=== PATIENT | female | born 1935 | race Caucasian/White ===

== ENCOUNTER 2024-03-15 18:31 | Inpatient (IN) | payer OTHER, MEDICARE ==
[~2024-03-15] VITALS: Ht 157.5 cm; Wt 59.0 kg
[2024-03-15 19:25] LABS: BASOPHILS % (AUTO) 0.1 % (0-1); EOSINOPHILS % (AUTO) 0 % (0-6); HEMATOCRIT 34.4 % (35.0-45.0); HEMOGLOBIN 11.5 g/dl (12.0-16.0); LYMPHOCYTES # (AUTO) 0.2 X10'3 (1.1-4.8); LYMPHOCYTES % (AUTO) 2.1 % (21-51); MEAN CORPUSCULAR HEMOGLOBIN 30.3 PG (27.0-31.0); MEAN CORPUSCULAR HGB CONC 33.6 g/dL (33.0-36.5); MEAN CORPUSCULAR VOLUME 90.4 FL (78-98); MEAN PLATELET VOLUME 8.4 FL (7.4-10.4); MONOCYTES # (AUTO) 0.2 X10'3 (0-0.9); MONOCYTES % (AUTO) 2.1 % (2-12); NEUTROPHILS # (AUTO) 9.9 X10'3 (1.8-7.7); NEUTROPHILS % (AUTO) 95.7 % (42-75); PLATELET COUNT 193 X10'3 (140-440); RED CELL DISTRIBUTION WIDTH 13.2 % (11.5-14.5); WHITE BLOOD COUNT 10.3 X10'3 (4.5-11.0)
[2024-03-15 19:47] LABS: ALBUMIN 2.6 G/DL (3.4-5.0); ANION GAP 9 (8-16); BLOOD UREA NITROGEN 15 MG/DL (7-18); BUN/CREATININE RATIO 22.4 (10.0-20.0); CALCIUM 8.6 MG/DL (8.5-10.1); CHLORIDE 94 MMOL/L (99-107); CREATININE 0.67 MG/DL (0.40-0.90); GLUCOSE 293 MG/DL (70-104); POTASSIUM 3.4 MMOL/L (3.5-5.1); PRO BRAIN NATRIURETIC PEPTIDE 5207 PG/ML (0-450); SODIUM 131 MMOL/L (135-145); TOTAL CARBON DIOXIDE 27.7 MMOL/L (24-32); eCRCL 47 ML/MIN; eGFR 83 ML/MIN
[2024-03-15] MEDS ORDERED: ondansetron/PF 4mg/2ml inj IV PRN (20:20)
[2024-03-15] MEDS ORDERED: magnesium Cl slow-release 64mg tablet PO PRN (20:20)
[2024-03-15] MEDS ORDERED: magnesium 4gm in 100ml NS 100 ML IV PRN (20:20)
[2024-03-15] MEDS ORDERED: potassium Cl 20 mEq SR tablet PO PRN (20:20)
[2024-03-15] MEDS ORDERED: mag hydrox/Alum hydrox/simeth 30ml oral suspension PO PRN (20:20)
[2024-03-15] MEDS ORDERED: potassium Cl 40MEQ/1/2NS 520ml 520 ML IV PRN (20:20)
[2024-03-15] MEDS ORDERED: magnesium 2GM in 50ml NS 50 ML IV PRN (20:20)
[2024-03-15] MEDS: predniSONE 20 mg tablet PO SCH (21:17)
[2024-03-15] MEDS: normal saline 1000ml 1,000 ML IV SCH (21:17)
[2024-03-15 21:32] LABS: HEMOGLOBIN A1C 7.1 % (4.5-6.2)
[2024-03-15 21:39] LABS: CHOLESTEROL 126 MG/DL (0-200); HDL CHOLESTEROL 64 MG/DL (35-60); LDL CHOLESTEROL 42 MG/DL (50-100); TRIGLYCERIDES 81 MG/DL (20-135)
[2024-03-16] VITALS (18 sets, daily range): BP systolic 101–114; BP diastolic 45–73; PULSE 80–107; RESP 14–20; TEMP 97.7–98.4; O2SAT 94–100
[2024-03-16] MEDS: ipratropium/albuterol 3ml nebule NEB SCH (00:25)
[2024-03-16 00:47] LABS: BILIRUBIN,URINE NEGATIVE (Neg); CLARITY,URINE CLEAR (Clear); COLOR,URINE YELLOW (Yellow); GLUCOSE, URINE 500 mg/dl (Neg); KETONES,URINE >=80 mg/dl (Neg); LEUKOCYTE ESTERASE ,URINE NEGATIVE (Neg); NITRITES, URINE NEGATIVE (Neg); OCCULT BLOOD,URINE NEGATIVE (Neg); PROTEIN,URINE 30 mg/dl (Neg)
[2024-03-16 00:49] LABS: UA COLLECTION TYPE NON-SPECIFIED
[2024-03-16 01:15] LABS: BACTERIA,URINE FEW /HPF (Neg); MUCUS STRANDS FEW /LPF (Neg); RBC,URINE 0-2 /HPF (0-2); RENAL CELLS, URINE FEW /HPF; TRANSITIONAL EPI CELLS,URINE FEW /HPF; WBC,URINE 0-4 /HPF (0-4)
[2024-03-16 01:16] LABS: CAL OXALATE CRYSTALS 1+ /HPF (NEGATIVE); COARSE GRANULAR CAST 0-3 /LPF (NEGATIVE); SQUAMOUS EPITHELIAL CELL,UR MODERATE /LPF (FEW)
[2024-03-16] MEDS: K and/or MAG REPLACEMENT MC SCH (08:00)
[2024-03-16 08:01] LABS: BASOPHILS % (AUTO) 0.1 % (0-1); EOSINOPHILS % (AUTO) 0 % (0-6); HEMATOCRIT 35.9 % (35.0-45.0); HEMOGLOBIN 11.9 g/dl (12.0-16.0); LYMPHOCYTES # (AUTO) 0.6 X10'3 (1.1-4.8); LYMPHOCYTES % (AUTO) 5.6 % (21-51); MEAN CORPUSCULAR HEMOGLOBIN 30.1 PG (27.0-31.0); MEAN CORPUSCULAR HGB CONC 33.2 g/dL (33.0-36.5); MEAN CORPUSCULAR VOLUME 90.9 FL (78-98); MEAN PLATELET VOLUME 8.2 FL (7.4-10.4); MONOCYTES # (AUTO) 0.4 X10'3 (0-0.9); NEUTROPHILS # (AUTO) 9.3 X10'3 (1.8-7.7); NEUTROPHILS % (AUTO) 90.3 % (42-75); PLATELET COUNT 188 X10'3 (140-440); RED BLOOD COUNT 3.95 X10'6 (4.20-5.60); RED CELL DISTRIBUTION WIDTH 13.2 % (11.5-14.5); WHITE BLOOD COUNT 10.3 X10'3 (4.5-11.0)
[2024-03-16 08:22] LABS: GLUCOSE 238 MG/DL (70-104); SODIUM 136 MMOL/L (135-145)
[2024-03-16 08:23] LABS: ALANINE AMINOTRANSFERASE 31 U/L (12-78); ALBUMIN 2.4 G/DL (3.4-5.0); ALBUMIN/GLOBULIN RATIO 0.6 (1.1-1.5); ALKALINE PHOSPHATASE 119 IU/L (46-116); ANION GAP 10 (8-16); ASPARTATE AMINO TRANSFERASE 20 U/L (10-37); BILIRUBIN,TOTAL 0.3 MG/DL (0.1-1.0); BLOOD UREA NITROGEN 14 MG/DL (7-18); BUN/CREATININE RATIO 35.9 (10.0-20.0); CALCIUM 8.6 MG/DL (8.5-10.1); CHLORIDE 100 MMOL/L (99-107); CREATININE 0.39 MG/DL (0.40-0.90); MAGNESIUM 2.2 MG/DL (1.5-2.4); POTASSIUM 3.4 MMOL/L (3.5-5.1); TOTAL CARBON DIOXIDE 25.7 MMOL/L (24-32); TOTAL PROTEIN 6.5 G/DL (6.4-8.2); eCRCL 80 ML/MIN; eGFR > 90 ML/MIN
[2024-03-16] MEDS: CefTRIAXone 2gm/D5W 50ml BAG 50 ML IV SCH (08:31)
[2024-03-16] MEDS: guaiFENesin ER 600mg tablet PO SCH (08:31)
[2024-03-16] MEDS: docusate sod 100mg capsule PO SCH (08:31)
[2024-03-16] MEDS: potassium Cl 20 mEq SR tablet PO PRN (09:28)
[2024-03-16] MEDS: azithromycin/NS 500mg/250ml 250 ML IV SCH (09:29)
[2024-03-16] MEDS ORDERED: dextrose 50%-water 50ml dispensing syringe IV PRN ×2 (12:55)
[2024-03-16] MEDS ORDERED: glucagon, human recombinant 1mg kit SUBCUT PRN (12:55)
[2024-03-16] MEDS ORDERED: DEXTROSE 15 GM of carb/4 tabs (each vial/BOTTLE has 4 tablets) PO PRN ×2 (12:55)
[2024-03-16] MEDS: insulin glargine (Lantus) pen - multi-dose SQ SCH (13:18)
[2024-03-16 13:44] LABS: D-DIMER 0.97 MG/L FEU (0-0.50)
[2024-03-16] MEDS ORDERED: CETI10TA14 PO (13:44)
[2024-03-16] MEDS ORDERED: HYDR25TA5 PO (13:44)
[2024-03-16] MEDS ORDERED: TIOT18CA3 INH (13:44)
[2024-03-16] MEDS ORDERED: IBUP-2697 PO (13:44)
[2024-03-16] MEDS ORDERED: ACET1TAB25 PO (13:44)
[2024-03-16] MEDS ORDERED: METF-1203 PO (13:44)
[2024-03-16] MEDS ORDERED: ISOS60TA71 PO (13:44)
[2024-03-16] MEDS ORDERED: LIDO700A32 TOP (13:44)
[2024-03-16] MEDS ORDERED: FLUT1BLS13 INH (13:44)
[2024-03-16] MEDS ORDERED: CHOL100046 PO (13:44)
[2024-03-16] MEDS ORDERED: PRAV40TA3 PO (13:44)
[2024-03-16] MEDS ORDERED: ASPI-1265 PO (13:44)
[2024-03-16] MEDS ORDERED: GABA-530 PO ×2 (13:44)
[2024-03-16] MEDS ORDERED: LISI2.5T14 PO (13:44)
[2024-03-16] MEDS ORDERED: LOP12.5T PO (13:44)
[2024-03-16] MEDS ORDERED: SELE200C PO (13:44)
[2024-03-16] MEDS ORDERED: ALBU90AE INH (13:44)
[2024-03-16] MEDS ORDERED: FAMO20TA8 PO (13:44)
[2024-03-16] MEDS ORDERED: VIT1TABL50 PO (13:44)
[2024-03-16] MEDS: INSULIN LISPRO 100 UNIT/ML INSULN.PEN MULTI-DOSE SQ SCH (13:58)
[2024-03-16] MEDS ORDERED: iohexol 350MG/ML 100ml bottle IV ONE (17:41)
[2024-03-16] MEDS: heparin, porcine 5000 units/ml vial SQ SCH (19:52)
[2024-03-16] MEDS: pravastatin 40mg tablet PO SCH (20:54)
[2024-03-16] MEDS: acetaminophen 325mg tablet PO PRN (21:03)
[2024-03-17] VITALS (18 sets, daily range): BP systolic 95–130; BP diastolic 47–78; PULSE 70–108; RESP 14–22; TEMP 97–98.7; O2SAT 91–96
[2024-03-17 06:58] LABS: BASOPHILS % (AUTO) 0.1 % (0-1); EOSINOPHILS % (AUTO) 0 % (0-6); HEMATOCRIT 33.6 % (35.0-45.0); HEMOGLOBIN 11.2 g/dl (12.0-16.0); LYMPHOCYTES # (AUTO) 1.6 X10'3 (1.1-4.8); LYMPHOCYTES % (AUTO) 8.5 % (21-51); MEAN CORPUSCULAR HGB CONC 33.4 g/dL (33.0-36.5); MEAN CORPUSCULAR VOLUME 89.9 FL (78-98); MEAN PLATELET VOLUME 8.5 FL (7.4-10.4); MONOCYTES # (AUTO) 1.8 X10'3 (0-0.9); NEUTROPHILS % (AUTO) 81.4 % (42-75); PLATELET COUNT 252 X10'3 (140-440); RED BLOOD COUNT 3.74 X10'6 (4.20-5.60); RED CELL DISTRIBUTION WIDTH 13.4 % (11.5-14.5); WHITE BLOOD COUNT 18.3 X10'3 (4.5-11.0)
[2024-03-17 07:15] LABS: ANION GAP 3 (8-16); BILIRUBIN,TOTAL 0.3 MG/DL (0.1-1.0); BLOOD UREA NITROGEN 16 MG/DL (7-18); BUN/CREATININE RATIO 30.8 (10.0-20.0); CALCIUM 8.9 MG/DL (8.5-10.1); CHLORIDE 102 MMOL/L (99-107); CREATININE 0.52 MG/DL (0.40-0.90); GLUCOSE 202 MG/DL (70-104); SODIUM 137 MMOL/L (135-145); TOTAL CARBON DIOXIDE 31.9 MMOL/L (24-32); eCRCL 59 ML/MIN; eGFR > 90 ML/MIN
[2024-03-17 07:16] LABS: ALANINE AMINOTRANSFERASE 53 U/L (12-78); ALBUMIN 2.4 G/DL (3.4-5.0); ALBUMIN/GLOBULIN RATIO 0.7 (1.1-1.5); ALKALINE PHOSPHATASE 111 IU/L (46-116); ASPARTATE AMINO TRANSFERASE 34 U/L (10-37)
[2024-03-17] MEDS: lisinopril 2.5mg tablet PO SCH (08:00)
[2024-03-17] MEDS ORDERED: famotidine 20mg tablet PO PRN (09:00)
[2024-03-17] MEDS: gabapentin 300mg capsule PO SCH (09:24)
[2024-03-17] MEDS: isosorbide dinitrate 30mg tablet PO SCH (09:24)
[2024-03-17] MEDS: folic acid/vitamin B complex w/vitamin C 0.8mg tablet PO SCH (09:25)
[2024-03-17] MEDS: aspirin 81mg tab.chew PO SCH (09:26)
[2024-03-17] MEDS: acetaminophen w/codeine (30MG) #3 tablet PO PRN ×2 (09:45→12:27)
[2024-03-17] MEDS: albuterol 2.5 MG/3 ML nebule NEB PRN (10:22)
[2024-03-17] MEDS ORDERED: acetaminophen w/codeine (30MG) #3 tablet PO PRN (12:30)
[2024-03-17] MEDS ORDERED: morphine 2 MG/ML inj. syringe IV PRN (15:20)
[2024-03-17] MEDS: methylPREDNISolone sod succ 125mg/2ml vial IV ONE (15:53)
[2024-03-17] MEDS: HYDROcodone/acetaminophen 5mg/325mg tablet PO PRN (15:53)
[2024-03-17] MEDS: methylPREDNISolone sod succ 125mg/2ml vial IV SCH (19:11)
[2024-03-17] MEDS: gabapentin 100mg capsule PO SCH (20:40)
[2024-03-18] VITALS (16 sets, daily range): BP systolic 108–121; BP diastolic 43–61; PULSE 81–110; RESP 16–25; TEMP 97–98.7; O2SAT 93–100
[2024-03-18 05:56] LABS: BASOPHILS % (AUTO) 0.1 % (0-1); EOSINOPHILS % (AUTO) 0 % (0-6); HEMATOCRIT 33.8 % (35.0-45.0); HEMOGLOBIN 11.2 g/dl (12.0-16.0); LYMPHOCYTES # (AUTO) 0.7 X10'3 (1.1-4.8); LYMPHOCYTES % (AUTO) 4.5 % (21-51); MEAN CORPUSCULAR HEMOGLOBIN 29.8 PG (27.0-31.0); MEAN CORPUSCULAR HGB CONC 33.1 g/dL (33.0-36.5); MEAN CORPUSCULAR VOLUME 90.1 FL (78-98); MONOCYTES # (AUTO) 0.7 X10'3 (0-0.9); MONOCYTES % (AUTO) 4.4 % (2-12); NEUTROPHILS # (AUTO) 14.2 X10'3 (1.8-7.7); PLATELET COUNT 273 X10'3 (140-440); RED BLOOD COUNT 3.75 X10'6 (4.20-5.60); RED CELL DISTRIBUTION WIDTH 13.5 % (11.5-14.5); WHITE BLOOD COUNT 15.7 X10'3 (4.5-11.0)
[2024-03-18 06:09] LABS: ALBUMIN 2.4 G/DL (3.4-5.0); ALBUMIN/GLOBULIN RATIO 0.6 (1.1-1.5); ANION GAP 4 (8-16); BILIRUBIN,TOTAL 0.2 MG/DL (0.1-1.0); BLOOD UREA NITROGEN 15 MG/DL (7-18); BUN/CREATININE RATIO 26.3 (10.0-20.0); CALCIUM 9.5 MG/DL (8.5-10.1); CHLORIDE 98 MMOL/L (99-107); CREATININE 0.57 MG/DL (0.40-0.90); GLUCOSE 278 MG/DL (70-104); MAGNESIUM 1.9 MG/DL (1.5-2.4); POTASSIUM 4.7 MMOL/L (3.5-5.1); SODIUM 132 MMOL/L (135-145); TOTAL CARBON DIOXIDE 29.6 MMOL/L (24-32); TOTAL PROTEIN 6.2 G/DL (6.4-8.2); eCRCL 54 ML/MIN; eGFR > 90 ML/MIN
[2024-03-18 06:10] LABS: ALANINE AMINOTRANSFERASE 44 U/L (12-78); ALKALINE PHOSPHATASE 104 IU/L (46-116); ASPARTATE AMINO TRANSFERASE 21 U/L (10-37)
[2024-03-18] MEDS: HYDROchlorothiazide 12.5mg capsule PO SCH (07:50)
[2024-03-18] MEDS: magnesium hydroxide 30ml (MOM) UD suspension PO PRN (17:23)
[2024-03-18] MEDS: guaiFENesin ER 600mg tablet PO SCH (19:39)
[2024-03-19] VITALS (11 sets, daily range): BP systolic 113–120; BP diastolic 48–65; PULSE 86–111; RESP 16–20; TEMP 97.2–98.4; O2SAT 95–99
[2024-03-19 06:11] LABS: BASOPHILS % (AUTO) 0.1 % (0-1); EOSINOPHILS % (AUTO) 0 % (0-6); HEMATOCRIT 33.2 % (35.0-45.0); HEMOGLOBIN 11.1 g/dl (12.0-16.0); LYMPHOCYTES # (AUTO) 1.5 X10'3 (1.1-4.8); LYMPHOCYTES % (AUTO) 7.6 % (21-51); MEAN CORPUSCULAR HEMOGLOBIN 29.9 PG (27.0-31.0); MEAN CORPUSCULAR HGB CONC 33.4 g/dL (33.0-36.5); MEAN CORPUSCULAR VOLUME 89.5 FL (78-98); MEAN PLATELET VOLUME 7.9 FL (7.4-10.4); MONOCYTES # (AUTO) 1.1 X10'3 (0-0.9); MONOCYTES % (AUTO) 5.5 % (2-12); NEUTROPHILS # (AUTO) 17.4 X10'3 (1.8-7.7); NEUTROPHILS % (AUTO) 86.8 % (42-75); PLATELET COUNT 293 X10'3 (140-440); RED BLOOD COUNT 3.71 X10'6 (4.20-5.60); RED CELL DISTRIBUTION WIDTH 13.5 % (11.5-14.5)
[2024-03-19 06:22] LABS: ALANINE AMINOTRANSFERASE 42 U/L (12-78); ALBUMIN 2.5 G/DL (3.4-5.0); ALBUMIN/GLOBULIN RATIO 0.7 (1.1-1.5); ALKALINE PHOSPHATASE 96 IU/L (46-116); ANION GAP 5 (8-16); ASPARTATE AMINO TRANSFERASE 28 U/L (10-37); BILIRUBIN,TOTAL 0.2 MG/DL (0.1-1.0); BLOOD UREA NITROGEN 17 MG/DL (7-18); BUN/CREATININE RATIO 26.2 (10.0-20.0); CALCIUM 8.9 MG/DL (8.5-10.1); CHLORIDE 95 MMOL/L (99-107); CREATININE 0.65 MG/DL (0.40-0.90); GLUCOSE 301 MG/DL (70-104); MAGNESIUM 1.9 MG/DL (1.5-2.4); POTASSIUM 4.6 MMOL/L (3.5-5.1); SODIUM 133 MMOL/L (135-145); TOTAL CARBON DIOXIDE 32.8 MMOL/L (24-32); TOTAL PROTEIN 5.9 G/DL (6.4-8.2); eCRCL 47 ML/MIN; eGFR 86 ML/MIN
[2024-03-19 07:36] LABS: TOTAL CELLS COUNTED 100
[2024-03-19 07:37] LABS: PLATELET ESTIMATE NORMAL; POIKILOCYTOSIS FEW
== END 2024-03-19 14:06 | DRG 871 ==
LOC: ER 18:32 → UNDOADMIN 20:18 → ED HOLD 20:18 → PCU 3S 03-16 09:13
PROVIDERS: ADMIT Student in an Organized Health Care Education/Training Program; ATTEND Family Medicine
PROC: B32T1ZZ Computerized Tomography (CT Scan) of Left Pulmonary Artery using Low Osmolar Contrast (ICD-10-PCS; principal; 2024-03-16)
PROC: B3201ZZ Computerized Tomography (CT Scan) of Thoracic Aorta using Low Osmolar Contrast (ICD-10-PCS; 2024-03-16)
PROC: B32S1ZZ Computerized Tomography (CT Scan) of Right Pulmonary Artery using Low Osmolar Contrast (ICD-10-PCS; 2024-03-16)
DX: A41.9 Sepsis, unspecified organism (principal); I21.A1 Myocardial infarction type 2; J18.9 Pneumonia, unspecified organism; J96.21 Acute and chronic respiratory failure with hypoxia; J44.0 Chronic obstructive pulmonary disease with (acute) lower respiratory infection; J44.1 Chronic obstructive pulmonary disease with (acute) exacerbation; E87.1 Hypo-osmolality and hyponatremia; I50.9 Heart failure, unspecified; I11.0 Hypertensive heart disease with heart failure; I44.7 Left bundle-branch block, unspecified; E11.9 Type 2 diabetes mellitus without complications; I25.10 Atherosclerotic heart disease of native coronary artery without angina pectoris; R59.0 Localized enlarged lymph nodes; I08.1 Rheumatic disorders of both mitral and tricuspid valves; D72.829 Elevated white blood cell count, unspecified; T38.0X5A Adverse effect of glucocorticoids and synthetic analogues, initial encounter; Y92.238 Other place in hospital as the place of occurrence of the external cause; Z95.5 Presence of coronary angioplasty implant and graft; Z88.1 Allergy status to other antibiotic agents; Z90.49 Acquired absence of other specified parts of digestive tract; Z87.891 Personal history of nicotine dependence; Z99.81 Dependence on supplemental oxygen
CPT/HCPCS: 36415; 71045; 71275; 80048; 80053; 80061; 81001; 82948; 83036; 83605; 83735; 83880; 84145; 84484; 85007; 85025; 85379; 87040; 87081; 92508; 92616; 93005; 93306; 94640; 94760; 97116; 97161; 97530; 97535; 99285; G0378; J0456; J0696; J1644; J1815; J2919; J3490; J7030; J7040; J7512; Q9967